=== PATIENT | female | born 1955 | race Caucasian/White ===

== ENCOUNTER → 2018-01-18 | Outpatient (CLI) | payer BC ==
--- NOTE | 2018-01-18 11:35 | BD ---
EXAMINATION TYPE: Axial Bone Density DATE OF EXAM: 01/18/2018 COMPARISON: 10.20.2012 DEXA bone scan. CLINICAL HISTORY: 62 YR OLD FEMALE....ICD-10 CODE: Z13.820 PRE MENOPAUSAL SCREENING? Height: 59.2 Weight: 160 FRAX RISK QUESTIONS: Family History (Parent hip fracture): YES RISK FACTORS HISTORY OF: Family History of Osteoporosis: YES, HER MOTHER, WITH BROKEN HIPS Active: YES Diet low in dairy products/other sources of calcium: NO Postmenopausal woman: YES AT AGE 50 MEDICATIONS: Additional Medications: PROZAC, ADDERALL, VITAMINS, AND CALCIUM Additional History: NOTHING TO NOTE EXAM MEASUREMENTS: Bone mineral densitometry was performed using the [facility]. Bone mineral density as measured about the Lumbar spine is: ----- L1-L4(G/cm2): 0.995 T Score Values are as follows: ----- L1: -2.2 ----- L2: -1.9 ----- L3: -1.1 ----- L4: -1.4 ----- L1-L4: -1.5 Bone mineral density has: Decreased -2.0% since study of: 10.20.2012 Bone mineral density about the R hip (g/cm2): 0.949 Bone mineral density about the L hip (g/cm2): 1.004 T Score values are as follows: -----R Neck: -1.1 -----L Neck: -1.0 -----R Total: -0.5 -----L Total: -0.2 Bone mineral density has: Decreased -6.8% since study of: 10.20.2012 FRAX%s: THERE IS A 15.2% CHANCE FOR A MAJOR OSTEOPOROTIC FX AND A 0.6% FOR HIP FX.....PROBABILITY OF FX IN 10 YRS TIME IMPRESSION: Osteopenia (T Score between -2.5 and -1) overall in the low back and femoral neck level in right hip is now present. Bone density is decreased or diminished from prior. There is slightly increased risk of fracture and the patient may be considered for treatment. Re-Screen 2-5 years. NOTE: T-SCORE=SD OF THE YOUNG ADULT MEAN.
--- NOTE | 2018-01-18 12:13 | MM ---
Reason for exam: screening (asymptomatic). Last mammogram was performed 4 years and 2 months ago. History: Patient is postmenopausal and is nulliparous. Family history of breast cancer in mother at age 50 and breast cancer in maternal aunt at age 50. Reductions of both breasts, 2015. Physical Findings: A clinical breast exam by your physician is recommended on an annual basis and results should be correlated with mammographic findings. MG Screening Mammo w CAD Bilateral CC, MLO, and XCCL view(s) were taken. Prior study comparison: November 19, 2013, bilateral MG screening mammo w CAD. May 16, 2013, left diagnostic mammogram w/CAD. The breast tissue is heterogeneously dense. This may lower the sensitivity of mammography. Finding: There are typically benign round calcifications in the upper outer quadrant of the left breast. There is no discrete abnormality. ASSESSMENT: Benign, BI-RAD 2 RECOMMENDATION: Routine screening mammogram of both breasts in 1 year.
== END | disposition home or self-care (01) ==
LOC: RADMAMWWP 10:11
PROVIDERS: ATTEND Family Medicine
DX: Z12.31 Encounter for screening mammogram for malignant neoplasm of breast (principal); M85.851 Other specified disorders of bone density and structure, right thigh; M85.852 Other specified disorders of bone density and structure, left thigh; M85.88 Other specified disorders of bone density and structure, other site
CPT/HCPCS: 77067; 77080

== ENCOUNTER 2018-11-15 10:26 | Emergency (ER) | payer BC, MEDICARE ==
[2018-11-15 10:54] VITALS: BP 119/74
[2018-11-15] MEDS ORDERED: SODIUM CHLORIDE 0.9% 1,000 ML IV STA ×2 (11:24)
[2018-11-15] MEDS ORDERED: ONDANSETRON 4 MG/2 ML VIAL IVP STA (11:24)
[2018-11-15] MEDS ORDERED: PANTOPRAZOLE 40 MG/10 ML VIAL IVP STA (11:24)
--- NOTE | 2018-11-15 11:46 | ED ---
Abdominal Pain HPI - General Chief Complaint: Abdominal Pain Stated Complaint: N/V/D Time Seen by Provider: 11/15/18 11:00 Source: patient, family, RN notes reviewed, old records reviewed, Caregiver Mode of arrival: wheelchair Limitations: no limitations - History of Present Illness Initial Comments: Patient 63-year-old female presents emergency department today with nausea vomiting and diarrhea for the past 24 hours. Patient reports that symptoms st arted after she leaves for dinner. Patient states that she's had no significant fevers or chills. Patient states her muscles ache and she is concerned for dehydration. Patient reports that her friend who ate with her also had some diarrhea. - Related Data Home Medications Medication Instructions Recorded Confirmed FLUoxetine HCL [PROzac] 30 mg PO HS 11/15/18 11/15/18 Nortriptyline HCl [Pamelor] 10 mg PO HS 11/15/18 11/15/18 Previous Rx's Medication Instructions Recorded Ondansetron Odt [Zofran Odt] 4 mg PO Q8HR PRN #12 tab 11/15/18 Allergies Allergy/AdvReac Type Severity Reaction Status Date / Time codeine AdvReac Nausea & Verified 11/15/18 11:07 Vomiting Review of Systems ROS Statement: Those systems with pertinent positive or pertinent negative responses have been documented in the HPI. ROS Other: All systems not noted in ROS Statement are negative. Past Medical History Additional Past Medical History / Comment(s): melanie anal abscess History of Any Multi-Drug Resistant Organisms: None Reported Past Surgical History: Appendectomy, Breast Surgery, Tonsillectomy Past Psychological History: Anxiety Smoking Status: Never smoker Past Alcohol Use History: Occasional Past Drug Use History: None Reported General Exam - General Exam Comments Initial Comments: Pleasant 63-year-old female. No distress. General: Well appearing, well nourished, in no distress. Oriented x 3, normal mood and affect . Ambulating without difficulty. Skin: Good turgor, no rash, unusual bruising or prominent lesions Hair: Normal texture and distribution. HEENT: Head: Normocephalic, atraumatic, no visible or palpable masses, depressions, or scaring. Eyes: Visual acuity intact, conjunctiva clear, sclera non-icteric, EOM intact, PERRL. Ears: EACs clear, TMs translucent & cone of light visualized. hearing intact. Nose: No external lesions, mucosa non-inflamed, septum and turbinates normal Mouth: Mucous membranes moist, no mucosal lesions. Teeth/Gums: No obvious caries or periodontal disease. No gingival inflammation or significant resorption. Pharynx: Mucosa non-inflamed, no tonsillar hypertrophy or exudate Neck: Supple, without lesions, bruits, or adenopathy, thyroid non-enlarged and non-tender Heart: No cardiomegaly or thrills; regular rate and rhythm, no murmur or gallop Lungs: Clear to auscultation and percussion Abdomen: Bowel sounds normal, no tenderness, organomegaly, masses, or hernia Back: Spine normal without deformity or tenderness, no CVA tenderness Rectal: Normal sphincter tone, no hemorrhoids or masses palpable Extremities: No amputations or deformities, cyanosis, edema or varicosities, peripheral pulses intact Musculoskeletal: Normal gait and station. No misalignment, asymmetry, crepitation, defects, tenderness, masses, effusions, decreased range of motion, instability, atrophy or abnormal strength or tone in the head, neck, spine, ribs, pelvis or extremities. Neurologic: CN 2-12 normal. Sensation to pain, touch, and proprioception normal. DTRs normal in upper and lower extremities. No pathologic reflexes. Psychiatric: Oriented X3, intact recent and remote memory, judgment and insight, normal mood and affect. Limitations: no limitations Course Vital Signs 11/15/18 11/15/18 10:51 13:40 Temperature 99.0 F 98.2 F Pulse Rate 81 86 Respiratory 18 16 Rate Blood Pressure 119/74 O2 Sat by Pulse 99 Oximetry Medical Decision Making - Medical Decision Making Asians a 63-year-old female nausea vomiting diarrhea for the past 24 hours after eating at [employer]. Patient lives to have food poisoning or viral illness. At this time she is no abdominal tenderness. Vital signs are stable. Labwork was reviewed and unremarkable. Patient will be discharged at this time with follow-up with her PCP. RETURN parameters were discussed. - Lab Data Result diagrams: 11/15/18 11:10 11/15/18 11:10 Lab Results 11/15/18 11/15/18 11/15/18 Range/Units 11:10 11:10 11:10 WBC 8.9 (3.8-10.6) k/uL RBC 4.98 (3.80-5.40) m/uL Hgb 15.3 (11.4-16.0) gm/dL Hct 46.3 H (34.0-46.0) % MCV 92.9 (80.0-100.0) fL MCH 30.7 (25.0-35.0) pg MCHC 33.0 (31.0-37.0) g/dL RDW 14.7 (11.5-15.5) % Plt Count 380 (150-450) k/uL Neutrophils % 94 % Lymphocytes % 3 % Monocytes % 3 % Eosinophils % 0 % Basophils % 0 % Neutrophils # 8.3 H (1.3-7.7) k/uL Lymphocytes # 0.2 L (1.0-4.8) k/uL Monocytes # 0.3 (0-1.0) k/uL Eosinophils # 0.0 (0-0.7) k/uL Basophils # 0.0 (0-0.2) k/uL PT 9.7 (9.0-12.0) sec INR 0.9 (<1.2) APTT 23.4 (22.0-30.0) sec Sodium 139 (137-145) mmol/L Potassium 4.3 (3.5-5.1) mmol/L Chloride 105 (98-107) mmol/L Carbon Dioxide 24 (22-30) mmol/L Anion Gap 10 mmol/L BUN 14 (7-17) mg/dL Creatinine 0.60 (0.52-1.04) mg/dL Est GFR (CKD-EPI)AfAm >90 (>60 ml/min/1.73 sqM) Est GFR (CKD-EPI)NonAf >90 (>60 ml/min/1.73 sqM) Glucose 120 H (74-99) mg/dL Calcium 9.2 (8.4-10.2) mg/dL Total Bilirubin 0.6 (0.2-1.3) mg/dL AST 30 (14-36) U/L ALT 24 (9-52) U/L Alkaline Phosphatase 106 (38-126) U/L Total Protein 7.2 (6.3-8.2) g/dL Albumin 4.3 (3.5-5.0) g/dL Amylase 46 (30-110) U/L Lipase 70 (23-300) U/L Urine Color Urine Appearance (Clear) Urine pH (5.0-8.0) Ur Specific [place] (1.001-1.035) Urine Protein (Negative) Urine Glucose (UA) (Negative) Urine Ketones (Negative) Urine Blood (Negative) Urine Nitrite (Negative) Urine Bilirubin (Negative) Urine Urobilinogen (<2.0) mg/dL Ur Leukocyte Esterase (Negative) Urine RBC (0-5) /hpf Urine WBC (0-5) /hpf Ur Squamous Epith Cells (0-4) /hpf Urine Mucus (None) /hpf 11/15/18 Range/Units 11:45 WBC (3.8-10.6) k/uL RBC (3.80-5.40) m/uL Hgb (11.4-16.0) gm/dL Hct (34.0-46.0) % MCV (80.0-100.0) fL MCH (25.0-35.0) pg MCHC (31.0-37.0) g/dL RDW (11.5-15.5) % Plt Count (150-450) k/uL Neutrophils % % Lymphocytes % % Monocytes % % Eosinophils % % Basophils % % Neutrophils # (1.3-7.7) k/uL Lymphocytes # (1.0-4.8) k/uL Monocytes # (0-1.0) k/uL Eosinophils # (0-0.7) k/uL Basophils # (0-0.2) k/uL PT (9.0-12.0) sec INR (<1.2) APTT (22.0-30.0) sec Sodium (137-145) mmol/L Potassium (3.5-5.1) mmol/L Chloride (98-107) mmol/L Carbon Dioxide (22-30) mmol/L Anion Gap mmol/L BUN (7-17) mg/dL Creatinine (0.52-1.04) mg/dL Est GFR (CKD-EPI)AfAm (>60 ml/min/1.73 sqM) Est GFR (CKD-EPI)NonAf (>60 ml/min/1.73 sqM) Glucose (74-99) mg/dL Calcium (8.4-10.2) mg/dL Total Bilirubin (0.2-1.3) mg/dL AST (14-36) U/L ALT (9-52) U/L Alkaline Phosphatase (38-126) U/L Total Protein (6.3-8.2) g/dL Albumin (3.5-5.0) g/dL Amylase (30-110) U/L Lipase (23-300) U/L Urine Color Yellow Urine Appearance Clear (Clear) Urine pH 7.0 (5.0-8.0) Ur Specific [place] 1.014 (1.001-1.035) Urine Protein Negative (Negative) Urine Glucose (UA) Negative (Negative) Urine Ketones Trace H (Negative) Urine Blood Trace H (Negative) Urine Nitrite Negative (Negative) Urine Bilirubin Negative (Negative) Urine Urobilinogen <2.0 (<2.0) mg/dL Ur Leukocyte Esterase Negative (Negative) Urine RBC 2 (0-5) /hpf Urine WBC <1 (0-5) /hpf Ur Squamous Epith Cells <1 (0-4) /hpf Urine Mucus Rare H (None) /hpf - Radiology Data Radiology results: report reviewed KUB shows evidence of enteritis. Disposition Clinical Impression: Gastroenteritis Disposition: HOME SELF-CARE Condition: Good Instructions (If sedation given, give patient instructions): Gastroenteritis (ED) Additional Instructions: Patient should've a clear liquid diet, later advanced to the brought diet as discussed. Take nausea medicine as needed. Return to the emergency department if any alarming signs or symptoms occur. Prescriptions: Ondansetron Odt [Zofran Odt] 4 mg PO Q8HR PRN #12 tab PRN Reason: Nausea Is patient prescribed a controlled substance at d/c from ED?: No Referrals: Lelo Garcia MD [Primary Care Provider] - 1-2 days Time of Disposition: 13:25
[2018-11-15 11:55] LABS: Basophils % (A) 0 %; Eosinophils % (A) 0 %; HCT 46.3 % (34.0-46.0); HGB 15.3 gm/dL (11.4-16.0); Lymphocytes # (A) 0.2 k/uL (1.0-4.8); Lymphocytes % (A) 3 %; MCH 30.7 pg (25.0-35.0); MCV 92.9 fL (80.0-100.0); Mean Platelet Volume 6.7; Monocytes # (A) 0.3 k/uL (0-1.0); Monocytes % (A) 3 %; Neutrophils # (A) 8.3 k/uL (1.3-7.7); Neutrophils % (A) 94 %; Platelet Count 380 k/uL (150-450); RBC 4.98 m/uL (3.80-5.40); RDW 14.7 % (11.5-15.5); WBC 8.9 k/uL (3.8-10.6)
[2018-11-15 12:05] LABS: INR 0.9 (<1.2); Partial Thromboplastin Time 23.4 sec (22.0-30.0); Prothrombin Time 9.7 sec (9.0-12.0)
[2018-11-15 12:06] LABS: Appearance,Urine Clear (Clear); Bilirubin,Urine Negative (Negative); Blood,Urine Trace (Negative); Color,Urine Yellow; Glucose,Urine (UA) Negative (Negative); Ketones,Urine Trace (Negative); Leukocyte Esterase,Urine Negative (Negative); Mucus,Urine Rare /hpf; Nitrite,Urine Negative (Negative); Protein,Urine Negative (Negative); RBC,Urine 2 /hpf (0-5); Specific Gravity,Urine 1.014 (1.001-1.035); Squamous Epithelial Cell,Urine <1 /hpf (0-4); Urobilinogen,Urine <2.0 mg/dL (<2.0); WBC,Urine <1 /hpf (0-5)
[2018-11-15 12:07] LABS: ALT 24 U/L (9-52); AST 30 U/L (14-36); African American GFR (CKD) >90 (>60 ml/min/1.73 sqM); Albumin 4.3 g/dL (3.5-5.0); Alkaline Phosphatase 106 U/L (38-126); Amylase 46 U/L (30-110); Anion Gap 10 mmol/L; Blood Urea Nitrogen 14 mg/dL (7-17); Calcium 9.2 mg/dL (8.4-10.2); Carbon Dioxide 24 mmol/L (22-30); Chloride 105 mmol/L (98-107); Glucose 120 mg/dL (74-99); Potassium 4.3 mmol/L (3.5-5.1); Sodium 139 mmol/L (137-145); Total Bilirubin 0.6 mg/dL (0.2-1.3); Total Protein 7.2 g/dL (6.3-8.2)
--- NOTE | 2018-11-15 13:00 | XR ---
KUB HISTORY: Abdominal pain, vomiting and diarrhea Frontal KUB and 2 images There are air-fluid levels without bowel distention. No evident pneumoperitoneum. Bone mineralization is normal, spondylosis is present in the visualized spine, there is mild spinal curvature. Probable phleboliths in the pelvis. IMPRESSION: Findings consistent with enteritis, follow-up as indicated.
[2018-11-15] MEDS ORDERED: ONDANSETRON 4 MG ODT STARTER PACK 2 TAB BTL PO STA (13:25)
[2018-11-15 13:48] VITALS: PULSE 86; RESP 16; TEMP 98.2
== END 2018-11-15 13:40 | disposition home or self-care (01) ==
LOC: EC 10:26
DX: K52.9 Noninfective gastroenteritis and colitis, unspecified (principal); F41.9 Anxiety disorder, unspecified; Z90.49 Acquired absence of other specified parts of digestive tract; Z79.899 Other long term (current) drug therapy; Z88.5 Allergy status to narcotic agent
CPT/HCPCS: 36415; 80053; 82150; 83690; 85025; 85610; 85730; 81001; 74018; 99284; 96374; 96375; 96361 ×2; J2405; S0119; C9113

== ENCOUNTER → 2020-02-18 | Outpatient (CLI) | payer MEDICARE ==
--- NOTE | 2020-02-19 08:32 | MM ---
Reason for exam: screening (asymptomatic). Last mammogram was performed 2 years and 1 month ago. History: Patient is postmenopausal and is nulliparous. Family history of breast cancer in mother at age 50 and breast cancer in maternal aunt at age 50. Reductions of both breasts, 2015. Physical Findings: A clinical breast exam by your physician is recommended on an annual basis and results should be correlated with mammographic findings. MG 3D Screening Mammo W/Cad Bilateral CC and MLO view(s) were taken. Prior study comparison: January 18, 2018, bilateral MG screening mammo w CAD. November 19, 2013, bilateral MG screening mammo w CAD. There are scattered fibroglandular densities. There is no discrete abnormality. No significant changes when compared with prior studies. ASSESSMENT: Negative, BI-RAD 1 RECOMMENDATION: Routine screening mammogram of both breasts in 1 year.
== END | disposition home or self-care (01) ==
LOC: RADMAMWWP 08:15
PROVIDERS: ATTEND Internal Medicine Geriatric Medicine
DX: Z12.31 Encounter for screening mammogram for malignant neoplasm of breast (principal)
CPT/HCPCS: 77063; 77067

== ENCOUNTER → 2021-03-10 | Outpatient (CLI) | payer MEDICARE ==
--- NOTE | 2021-03-11 10:12 | BD ---
EXAMINATION TYPE: Axial Bone Density DATE OF EXAM: 03/10/2021 COMPARISON: NONE CLINICAL HISTORY: Height: 4 FT 10 IN Weight: 166 FRAX RISK QUESTIONS: Alcohol (3 or more units per day): NO Family History (Parent hip fracture): YES Glucocorticoids (More than 3mos): NO (Ex: prednisone, prednisolone, methylprednisolone, dexamethasone, and hydrocortisone). History of Fracture in Adulthood: NO Secondary Osteoporosis: 1. Type 1 Diabetes: NO 2. Hyperthyroidism: NO 3. Menopause before 45: NO 4. Malnutrition: NO 5. Chronic liver disease: NO Rheumatoid Arthritis: NO Current Tobacco Use: NO RISK FACTORS HISTORY OF: Surgery to Spine/Hip(right/left)/Wrist (right/left): NO Family History of Osteoporosis: YES Active: YES Diet low in dairy products/other sources of calcium: NO Postmenopausal woman: YES Take estrogen and/or progesterone medications: NO Lost more than 2 inches in height since high school: YES Frequent falls: NO Poor Health: GOOD Hyperparathyroidism: NO Adrenal Insufficiency: NO MEDICATIONS: Additional Medications: PROZAC, AMBIEN, Additional History: EXAM MEASUREMENTS: Bone mineral densitometry was performed using the [employer]. Bone mineral density as measured about the Lumbar spine is: ----- L1-L4(G/cm2): 0.958 T Score Values are as follows: ----- L2: -2.3 ----- L3: -1.3 ----- L4: -1.8 ----- L1-L4: -1.9 Bone mineral density has: DECREASED -3.9 % since study of: 2017 Bone mineral density about the R hip (g/cm2): 0.870 Bone mineral density about the L hip (g/cm2): 0.910 T Score values are as follows: -----R Neck: -1.2 -----L Neck: -0.9 -----R Total: -0.6 -----L Total: -0.2 Bone mineral density has: DECREASED -2.0 % since study of: 2018 IMPRESSION: osteopenia NOTE: T-SCORE=SD OF THE YOUNG ADULT MEAN.
--- NOTE | 2021-03-12 10:38 | MM ---
Reason for exam: screening (asymptomatic). Last mammogram was performed 1 year and 1 month ago. History: Patient is postmenopausal and is nulliparous. Family history of breast cancer in mother at age 50 and breast cancer in maternal aunt at age 50. Reductions of both breasts, 2015. Physical Findings: A clinical breast exam by your physician is recommended on an annual basis and results should be correlated with mammographic findings. MG 3D Screening Mammo W/Cad Bilateral CC and MLO view(s) were taken. Prior study comparison: February 18, 2020, bilateral MG 3d screening mammo w/cad. January 18, 2018, bilateral MG screening mammo w CAD. The breast tissue is heterogeneously dense. This may lower the sensitivity of mammography. Stable benign calcifications. There is no discrete abnormality. No significant changes when compared with prior studies. ASSESSMENT: Benign, BI-RAD 2 RECOMMENDATION: Routine screening mammogram of both breasts in 1 year.
== END | disposition home or self-care (01) ==
LOC: RADMAMWWP 13:37
PROVIDERS: ATTEND Internal Medicine Geriatric Medicine
DX: Z12.31 Encounter for screening mammogram for malignant neoplasm of breast (principal); M81.0 Age-related osteoporosis without current pathological fracture
CPT/HCPCS: 77063; 77067; 77080

== ENCOUNTER → 2023-03-13 | Outpatient (CLI) | payer MEDICARE ==
--- NOTE | 2023-03-13 20:25 | BD ---
EXAMINATION TYPE: Axial Bone Density DATE OF EXAM: 03/13/2023 CLINICAL HISTORY: 67 years old Female. ICD-10 CODE: ; M81.0 Height: 60 Weight: 157.1 FRAX RISK QUESTIONS: Alcohol (3 or more units per day): no Family History (Parent hip fracture): yes Glucocorticoids (More than 3mos): no (Ex: prednisone, prednisolone, methylprednisolone, dexamethasone, and hydrocortisone). History of Fracture in Adulthood: no Secondary Osteoporosis: 1. Type 1 Diabetes: no 2. Hyperthyroidism: no 3. Menopause before 45: no 4. Malnutrition: no 5. Chronic liver disease: no Rheumatoid Arthritis: no Current Tobacco Use: no RISK FACTORS HISTORY OF: Surgery to Spine/Hip(right/left)/Wrist (right/left): no Additional History: EXAM MEASUREMENTS: Bone mineral densitometry was performed using the [employer]. Bone mineral density as measured about the Lumbar spine is: ----- L1-L4(G/cm2): 0.983 T Score Values are as follows: ----- L1: -2.2 ----- L2: -1.7 ----- L3: -1.4 ----- L4: -1.6 ----- L1-L4: -1.6 Z Score Values are as follows: ----- L1: -0.8 ----- L2: -0.2 ----- L3: 0.1 ----- L4: -0.1 ----- L1-L4: -0.2 Bone mineral density has: increased 2.6 % since study of: 03.10.2021 Bone mineral density about the R hip (g/cm2): 0.912 Bone mineral density about the L hip (g/cm2): 0.955 T Score values are as follows: -----R Neck: -1.4 -----L Neck: -0.9 -----R Total: -0.8 -----L Total: -0.4 Z Score values are as follows: -----R Neck: 0.2 -----L Neck: 0.6 -----R Total: 0.5 -----L Total: 0.9 Bone mineral density has: decreased -2.5 % since study of: 12.21.2020 FRAX%s: The graph provided illustrates a 14.6% chance for a major osteoporotic fx and a 2.2% chance f or the hips probability for fx in 10 years time. IMPRESSION: Osteopenia (T Score between -2.5 and -1). There is slightly increased risk of fracture and the patient may be considered for treatment. Re-Screen 2-5 years. NOTE: T-SCORE=SD OF THE YOUNG ADULT MEAN.
--- NOTE | 2023-03-14 20:35 | MM ---
Reason for Exam: Screening (asymptomatic). Last mammogram was performed 2 year(s) and 0 month(s) ago. Patient History: Menarche at age 9. Patient has no children. Postmenopausal. 2014, Bilateral Reduction. Maternal aunt had breast cancer, age 50. Mother had breast cancer, age 50. Risk Values: Leuxs 5 year model risk: 3.7%. NCI Lifetime model risk: 11.1%. Prior Study Comparison: 01/18/2018 Bilateral Screening Mammogram, [facility]. 02/18/2020 Bilateral Screening Mammogram, [facility]. 03/10/2021 Bilateral Screening Mammogram, [facility]. Tissue Density: There are scattered fibroglandular densities. Findings: Analyzed By CAD. Unchanged areas of bilateral asymmetric densities. There is no suspicious group of microcalcifications or new suspicious mass in either breast. Overall Assessment: Benign, BI-RAD 2 Management: Screening Mammogram of both breasts in 1 year. See note below in regards to patient's increased 5 year Lexus score. Patient should continue monthly self-breast exams. A clinical breast exam by your physician is recommended on an annual basis. This exam should not preclude additional follow-up of suspicious palpable abnormalities. Note on Lexus scores and lifetime risk: 1. A Lexus score greater than 3% is considered moderate risk. If this is the case, consider specialist referral to assess eligibility for a risk reducing agent. 2. If overall lifetime risk for the development of breast cancer is 20% or higher, the patient may qualify for future screening with alternating mammogram and breast MRI. Electronically signed and approved by: Lula Hawkins M.D. Radiologist
== END | disposition home or self-care (01) ==
LOC: RADMAMWWP 12:44
PROVIDERS: ATTEND Internal Medicine Geriatric Medicine
DX: Z12.31 Encounter for screening mammogram for malignant neoplasm of breast (principal); M85.89 Other specified disorders of bone density and structure, multiple sites; Z78.0 Asymptomatic menopausal state; Z80.3 Family history of malignant neoplasm of breast
CPT/HCPCS: 77063; 77067; 77080

== ENCOUNTER → 2023-03-13 | Outpatient (CLI) | payer MEDICARE ==
--- NOTE | 2023-03-13 14:07 | XR ---
EXAMINATION TYPE: XR chest 2V DATE OF EXAM: 03/13/2023 COMPARISON: NONE TECHNIQUE: PA and lateral views submitted. HISTORY: Shortness of breath FINDINGS: The lungs are clear and there is no pneumothorax, pleural effusion, or focal pneumonia. Heart size normal and no overt failure. Osseous structures demonstrate hypertrophic and degenerative changes of the spine. IMPRESSION: 1. No acute process.
== END | disposition home or self-care (01) ==
LOC: RADXRMAIN 13:38
PROVIDERS: ATTEND Nurse Practitioner Family
DX: R06.02 Shortness of breath (principal); Z86.16 Personal history of COVID-19
CPT/HCPCS: 71046

== ENCOUNTER → 2023-08-09 | Outpatient (CLI) | payer MEDICARE ==
--- NOTE | 2023-08-09 19:29 | MR ---
EXAMINATION TYPE: MR brain wo/w con DATE OF EXAM: 08/09/2023 6:48 PM CLINICAL INDICATION:Female, 67 years old with history of G93.40 ENCEPHALOPATHY, UNSPECIFIED; , Enceph alopathy, some confusion. COMPARISON: 11/20/2015 TECHNIQUE: Multi planar, multi sequence imaging was performed through the brain including: T1, T2, In version recovery, susceptibility weighted imaging and gradient echo imaging and Diffusion weighted im aging. The patient was then given intravenous contrast and multi planar, T1 fat-saturation images wer e obtained. IV Contrast: 7 cc Gadavist FINDINGS: The garcia-white junctions, ventricular system, basal cisterns appear unremarkable. Diffusion-weighted imaging shows no evidence of restricted diffusion to suggest acute/subacute infarct. Intracranial ar terial flow voids are maintained. Midline structures show no abnormality. Minimal foci of high T2 sig nal intensity are seen within the periventricular white matter most pronounced left posterior frontal lobe.. The susceptibility weighted images do not reveal any evidence for micro-hemorrhage. After adm inistration of gadolinium, no abnormal enhancement is seen. The bone marrow signal is within normal limits. Paranasal sinuses and mastoid air cells: No significant paranasal sinus disease. Visualized orbits: Orbital contents are intact. IMPRESSION: 1. No evidence of intracranial mass, acute/subacute infarct, or abnormal enhancement. 2. Minimal Nonspecific white matter changes, likely related to small vessel ischemic disease.
== END | disposition home or self-care (01) ==
LOC: RADMRIMAIN 17:47
PROVIDERS: ATTEND Internal Medicine Geriatric Medicine
DX: G93.40 Encephalopathy, unspecified (principal); R90.82 White matter disease, unspecified
CPT/HCPCS: 70553; A9585

== ENCOUNTER → 2024-01-29 | Outpatient (CLI) | payer MEDICARE ==
--- NOTE | 2024-01-29 15:52 | XR ---
EXAMINATION TYPE: XR knee limited RT DATE OF EXAM: 01/29/2024 3:20 PM CLINICAL INDICATION: Female, 68 years old with history of M25.561 PAIN IN RIGHT KNEE/XRAY; [facility] COMPARISON: None. TECHNIQUE: XR knee limited RT; examined in Frontal, lateral and oblique projections. FINDINGS: No evidence of any acute osseous pathology, soft tissue swelling, or joint effusion is no rodolfo. Tricompartmental osteophyte formation involving the femoral condyles, tibial plateau and patella . Mild joint space narrowing. IMPRESSION: 1. No acute osseous pathology. 2. Mild tricompartmental osteoarthritic changes. [facility], Workstation: [facility], 01/29/2024 3:50 PM
== END | disposition home or self-care (01) ==
LOC: RADXRMAIN 15:05
PROVIDERS: ATTEND Internal Medicine Geriatric Medicine
DX: M17.11 Unilateral primary osteoarthritis, right knee (principal)